=== PATIENT | male | born 1950 | race Caucasian/White ===

== ENCOUNTER 2022-03-15 12:08 | Inpatient (IN) | payer OTHER, MEDICARE ==
[~2022-03-15] VITALS: Ht 182.9 cm; Wt 110.0 kg
[2022-03-15 12:44] LABS: BASOPHILS # (AUTO) 0.1 X10'3 (0-0.2); EOSINOPHILS # (AUTO) 0.3 X10'3 (0-0.9); EOSINOPHILS % (AUTO) 3.1 % (0-6); HEMATOCRIT 29.9 % (42.0-52.0); HEMOGLOBIN 9.6 g/dl (14.0-17.9); LYMPHOCYTES # (AUTO) 1.5 X10'3 (1.1-4.8); LYMPHOCYTES % (AUTO) 13.4 % (21-51); MEAN CORPUSCULAR HEMOGLOBIN 28.6 PG (27.0-31.0); MEAN CORPUSCULAR HGB CONC 32.1 g/dL (33.0-36.5); MEAN CORPUSCULAR VOLUME 89.1 FL (78-98); MEAN PLATELET VOLUME 8.1 FL (7.4-10.4); MONOCYTES # (AUTO) 1.2 X10'3 (0-0.9); NEUTROPHILS # (AUTO) 7.8 X10'3 (1.8-7.7); NEUTROPHILS % (AUTO) 71.5 % (42-75); PLATELET COUNT 316 X10'3 (140-440); RED BLOOD COUNT 3.35 X10'6 (4.70-6.10); WHITE BLOOD COUNT 10.9 X10'3 (4.5-11.0)
[2022-03-15] MEDS ORDERED: diltiazem 5mg/ml 5ml inj. IV ONE (12:45)
[2022-03-15] MEDS ORDERED: diltiazem 30mg tablet PO ONE (12:53)
[2022-03-15 13:04] LABS: ALANINE AMINOTRANSFERASE 11 U/L (12-78); ALBUMIN 2.6 G/DL (3.4-5.0); ALBUMIN/GLOBULIN RATIO 0.5 (1.1-1.5); ALKALINE PHOSPHATASE 112 IU/L (46-116); ANION GAP 8 (8-16); ASPARTATE AMINO TRANSFERASE 14 U/L (10-37); BILIRUBIN,TOTAL 0.2 MG/DL (0.1-1.0); BLOOD UREA NITROGEN 24 MG/DL (7-18); BUN/CREATININE RATIO 17.3 (5.4-32.0); CALCIUM 8.9 MG/DL (8.5-10.1); CHLORIDE 104 MMOL/L (99-107); CREATININE 1.39 MG/DL (0.60-1.10); GLUCOSE 121 MG/DL (70-104); POTASSIUM 4.1 MMOL/L (3.5-5.1); SODIUM 140 MMOL/L (135-145); TOTAL CARBON DIOXIDE 28.3 MMOL/L (24-32); TOTAL PROTEIN 7.9 G/DL (6.4-8.2); eGFR 51 ML/MIN
[2022-03-15 14:30] LABS: D-DIMER 8.16 MG/L FEU (0-0.50)
[2022-03-15] MEDS ORDERED: iohexol 350MG/ML 100ml bottle IV ONE (14:49)
[2022-03-15] MEDS ORDERED: ZOLP5TAB8 PO (14:55)
[2022-03-15] MEDS ORDERED: LACT1TAB15 PO (14:55)
[2022-03-15] MEDS ORDERED: ENOX40SY7 SUBCUT (14:55)
[2022-03-15] MEDS ORDERED: RIFA300C9 PO (14:55)
[2022-03-15] MEDS ORDERED: PANT-47 PO (14:55)
[2022-03-15] MEDS ORDERED: HYDR-3965 PO (14:55)
[2022-03-15] MEDS ORDERED: POLY17PO10 PO (14:55)
[2022-03-15] MEDS ORDERED: LORA-269 PO (14:55)
[2022-03-15] MEDS ORDERED: NITR0.4T51 SL (14:55)
[2022-03-15] MEDS ORDERED: LOP12.5T PO (14:55)
[2022-03-15] MEDS ORDERED: MELA1TAB28 PO (14:55)
[2022-03-15] MEDS ORDERED: CEFA2PIG IV (14:55)
[2022-03-15 16:21] LABS: C-REACTIVE PROTEIN 6.74 MG/DL (0.0-0.5)
[2022-03-15] MEDS ORDERED: ondansetron/PF 4mg/2ml inj IV PRN (17:25)
[2022-03-15] MEDS ORDERED: acetaminophen 325mg tablet PO PRN (17:25)
[2022-03-15] MEDS ORDERED: potassium Cl 20 mEq SR tablet PO PRN ×2 (17:25)
[2022-03-15] MEDS ORDERED: HYDROcodone/acetaminophen 5mg/325mg tablet PO PRN (17:25)
[2022-03-15] MEDS ORDERED: magnesium Cl slow-release 64mg tablet PO PRN (17:25)
[2022-03-15] MEDS ORDERED: potassium Cl 40MEQ/1/2NS 520ml 520 ML IV PRN (17:25)
[2022-03-15] MEDS ORDERED: magnesium 4gm in 100ml NS 100 ML IV PRN (17:25)
[2022-03-15] MEDS ORDERED: regadenoson 0.4mg/5ml syringe IV PRN (17:30)
[2022-03-15] MEDS ORDERED: nitroGLYCERIN 0.4mg SUBLingual tab SL PRN (17:30)
[2022-03-15] MEDS ORDERED: aminophylline 250mg/10ml inj. IV PRN (17:30)
[2022-03-15] MEDS: normal saline 1000ml 1,000 ML IV SCH (18:05)
[2022-03-15] MEDS: K and/or MAG REPLACEMENT MC SCH (20:00)
[2022-03-15] MEDS: rifampin 300mg capsule PO SCH (22:55)
[2022-03-16] VITALS (11 sets, daily range): BP systolic 120–168; BP diastolic 77–118
[2022-03-16] MEDS ORDERED: cefazolin/dext.iso 2gm/100ml 100 ML IV SCH
[2022-03-16] MEDS: cefazolin/dext.iso 2gm/100ml 100 ML IV SCH ×3 (05:26→16:35)
[2022-03-16 07:31] LABS: BASOPHILS # (AUTO) 0.1 X10'3 (0-0.2); BASOPHILS % (AUTO) 0.8 % (0-1); EOSINOPHILS # (AUTO) 0.4 X10'3 (0-0.9); EOSINOPHILS % (AUTO) 4.4 % (0-6); HEMATOCRIT 29.7 % (42.0-52.0); HEMOGLOBIN 9.6 g/dl (14.0-17.9); LYMPHOCYTES # (AUTO) 1.2 X10'3 (1.1-4.8); LYMPHOCYTES % (AUTO) 12.8 % (21-51); MEAN CORPUSCULAR HEMOGLOBIN 28.8 PG (27.0-31.0); MEAN CORPUSCULAR HGB CONC 32.4 g/dL (33.0-36.5); MEAN CORPUSCULAR VOLUME 89.1 FL (78-98); MEAN PLATELET VOLUME 8.1 FL (7.4-10.4); MONOCYTES # (AUTO) 1.2 X10'3 (0-0.9); MONOCYTES % (AUTO) 12.8 % (2-12); NEUTROPHILS # (AUTO) 6.3 X10'3 (1.8-7.7); NEUTROPHILS % (AUTO) 69.2 % (42-75); PLATELET COUNT 288 X10'3 (140-440); RED BLOOD COUNT 3.34 X10'6 (4.70-6.10); RED CELL DISTRIBUTION WIDTH 16.3 % (11.5-14.5); WHITE BLOOD COUNT 9.1 X10'3 (4.5-11.0)
[2022-03-16] MEDS: normal saline 1000ml 1,000 ML IV SCH (07:31)
[2022-03-16 07:46] LABS: ALBUMIN 2.6 G/DL (3.4-5.0); ANION GAP 8 (8-16); BLOOD UREA NITROGEN 27 MG/DL (7-18); BUN/CREATININE RATIO 18.1 (5.4-32.0); CALCIUM 8.6 MG/DL (8.5-10.1); CHLORIDE 104 MMOL/L (99-107); CREATININE 1.49 MG/DL (0.60-1.10); GLUCOSE 104 MG/DL (70-104); MAGNESIUM 2.1 MG/DL (1.5-2.4); SODIUM 139 MMOL/L (135-145); eGFR 47 ML/MIN
[2022-03-16] MEDS: rifampin 300mg capsule PO SCH ×2 (08:00→20:00)
[2022-03-16] MEDS: K and/or MAG REPLACEMENT MC SCH ×2 (08:00→20:00)
[2022-03-16] MEDS: metoprolol tartrate 1mg/ml inj IV PRN ×2 (09:17→09:23)
[2022-03-16 19:24] LABS: URINE AMPHETAMINE SCREEN NEGATIVE (Neg); URINE BARBITUATE SCREEN NEGATIVE (Neg); URINE BENZODIAZEPINES SCREEN NEGATIVE (Neg); URINE CANNABINOID SCREEN NEGATIVE (Neg); URINE COCAINE SCREEN NEGATIVE (Neg); URINE METHADONE SCREEN NEGATIVE (Neg); URINE OPIATE SCREEN NEGATIVE (Neg); URINE PHENCYCLIDINE SCREEN NEGATIVE (Neg)
[2022-03-17] MEDS ORDERED: cefazolin/dext.iso 2gm/100ml 100 ML IV SCH (00:17)
[2022-03-17] MEDS: zolpidem 5mg tablet PO PRN ×2 (00:30→00:33)
[2022-03-17] MEDS: cefazolin/dext.iso 2gm/100ml 100 ML IV SCH ×2 (01:25→12:32)
[2022-03-17 06:00] VITALS: BP 171/128
[2022-03-17 06:15] LABS: BASOPHILS # (AUTO) 0.1 X10'3 (0-0.2); BASOPHILS % (AUTO) 0.6 % (0-1); EOSINOPHILS # (AUTO) 0.4 X10'3 (0-0.9); EOSINOPHILS % (AUTO) 4.7 % (0-6); HEMATOCRIT 27.3 % (42.0-52.0); LYMPHOCYTES # (AUTO) 1.3 X10'3 (1.1-4.8); LYMPHOCYTES % (AUTO) 14.3 % (21-51); MEAN CORPUSCULAR HEMOGLOBIN 29.2 PG (27.0-31.0); MEAN CORPUSCULAR VOLUME 88.5 FL (78-98); MEAN PLATELET VOLUME 7.9 FL (7.4-10.4); MONOCYTES # (AUTO) 1.2 X10'3 (0-0.9); MONOCYTES % (AUTO) 14.1 % (2-12); NEUTROPHILS # (AUTO) 5.8 X10'3 (1.8-7.7); NEUTROPHILS % (AUTO) 66.3 % (42-75); PLATELET COUNT 275 X10'3 (140-440); RED BLOOD COUNT 3.09 X10'6 (4.70-6.10); RED CELL DISTRIBUTION WIDTH 16.1 % (11.5-14.5); WHITE BLOOD COUNT 8.8 X10'3 (4.5-11.0)
[2022-03-17 06:41] LABS: ALBUMIN 2.3 G/DL (3.4-5.0); ANION GAP 8 (8-16); BLOOD UREA NITROGEN 24 MG/DL (7-18); BUN/CREATININE RATIO 16.9 (5.4-32.0); CALCIUM 8.6 MG/DL (8.5-10.1); CHLORIDE 104 MMOL/L (99-107); CREATININE 1.42 MG/DL (0.60-1.10); GLUCOSE 104 MG/DL (70-104); MAGNESIUM 1.8 MG/DL (1.5-2.4); POTASSIUM 3.8 MMOL/L (3.5-5.1); SODIUM 140 MMOL/L (135-145); TOTAL CARBON DIOXIDE 27.7 MMOL/L (24-32); eGFR 49 ML/MIN
--- NOTE | 2022-03-17 07:29 | NUR ---
sent to [facility] [id number] Sanjay: need home meds added to emar. bp 171/128. no meds to give. thank you. Catrachita ELLINGTON [id number]
--- NOTE | 2022-03-17 07:51 | NUR ---
sent to [facility]: [id number] Sanjay: pulled picc line out. orders? thank you. Catrachita ELLINGTON [id number]
[2022-03-17] MEDS: rifampin 300mg capsule PO SCH (08:00)
[2022-03-17] MEDS: K and/or MAG REPLACEMENT MC SCH (08:00)
[2022-03-17] MEDS ORDERED: nitroGLYCERIN 0.4mg SUBLingual tab SL PRN (08:40)
[2022-03-17] MEDS ORDERED: polyethylene glycol 3350 17gm powd pack PO PRN (08:40)
[2022-03-17] MEDS ORDERED: zolpidem 5mg tablet PO PRN (08:40)
[2022-03-17] MEDS ORDERED: enoxaparin 40mg/0.4ml syringe SUBCUT SCH (08:40)
[2022-03-17] MEDS ORDERED: HYDROcodone/acetaminophen 5mg/325mg tablet PO PRN ×2 (08:40)
[2022-03-17] MEDS ORDERED: LORazepam 1 MG tablet PO PRN (08:40)
--- NOTE | 2022-03-17 08:59 | NUR ---
sent to [facility]: [id number] Sanjay; picc line rn needs md to sign consent for new picc line. it was not originally placed here. consent in front of chart. thank you. Catrachita ELLINGTON [id number]
[2022-03-17] MEDS ORDERED: metoprolol tartrate 25mg tablet PO SCH (09:07)
[2022-03-17] MEDS ORDERED: rifampin 300mg capsule PO SCH (09:07)
[2022-03-17] MEDS ORDERED: pantoprazole 40mg Tablet.DR PO SCH (09:08)
[2022-03-17] MEDS ORDERED: lactobacillus rhamnosus 10,000 MMU CELLS/CAPSULE PO SCH (09:08)
[2022-03-17 11:00] VITALS: BP 149/102
--- NOTE | 2022-03-17 11:56 | NUR ---
pt is very grouchy. everytime I try to help and honor his requests, he uses profanity and sounds frustrated. I asked him if there was anything i could do. again with the profanity. Pt is supposed to discharge back to [facility] today.
--- NOTE | 2022-03-17 14:02 | NUR ---
transport here to cook pickled meat patient. pt being difficult not wanting to get out of bed. finally coaxed him to get on gurney. pt left unit via gurney back to [facility].
[2022-03-17] MEDS ORDERED: ceFAZolin 2gm in dextrose, iso 2,000 MG/50 ML BAG IV SCH (16:00)
[2022-03-17] MEDS ORDERED: MELATONIN PO SCH (21:00)
[2022-03-17] MEDS ORDERED: PYRIDOXINE HCL PO SCH (21:00)
== END 2022-03-17 13:53 | DRG 315 ==
LOC: ER 12:10 → ED HOLD 17:42 → PCU 3S 23:17
PROVIDERS: ADMIT Internal Medicine; ATTEND Internal Medicine
PROC: B32T1ZZ Computerized Tomography (CT Scan) of Left Pulmonary Artery using Low Osmolar Contrast (ICD-10-PCS; 2022-03-15)
PROC: B3201ZZ Computerized Tomography (CT Scan) of Thoracic Aorta using Low Osmolar Contrast (ICD-10-PCS; 2022-03-15)
PROC: B32S1ZZ Computerized Tomography (CT Scan) of Right Pulmonary Artery using Low Osmolar Contrast (ICD-10-PCS; 2022-03-15)
PROC: 4A02XM4 Measurement of Cardiac Total Activity, External Approach (ICD-10-PCS; principal; 2022-03-16)
PROC: 3E033HZ Introduction of Radioactive Substance into Peripheral Vein, Percutaneous Approach (ICD-10-PCS; 2022-03-16)
DX: I30.1 Infective pericarditis (principal); I48.92 Unspecified atrial flutter; M00.9 Pyogenic arthritis, unspecified; J90 Pleural effusion, not elsewhere classified; I48.0 Paroxysmal atrial fibrillation; Z20.822 Contact with and (suspected) exposure to COVID-19; F15.90 Other stimulant use, unspecified, uncomplicated; I20.9 Angina pectoris, unspecified; D63.8 Anemia in other chronic diseases classified elsewhere; F17.210 Nicotine dependence, cigarettes, uncomplicated; I12.9 Hypertensive chronic kidney disease with stage 1 through stage 4 chronic kidney disease, or unspecified chronic kidney disease; K21.9 Gastro-esophageal reflux disease without esophagitis; N18.9 Chronic kidney disease, unspecified; R79.82 Elevated C-reactive protein (CRP); Z79.899 Other long term (current) drug therapy; Z28.310 Unvaccinated for COVID-19
CPT/HCPCS: 36410; 36415; 71045; 71275; 76937; 78452; 80048; 80053; 80305; 83735; 83880; 84145; 84484; 85025; 85379; 85610; 85651; 86140; 87081; 87811; 93005; 93017; 93306; 97116; 97161; 97530; 99285; A9500; C1751; G0378; J0690; J2785; J3490; J7030; Q9967